=== PATIENT | female | born 1940 | race African-American/Black ===

== ENCOUNTER 2019-03-19 06:00 | Day surgery (SDC) | payer OTHER ==
[~2019-03-19 06:00] MED LIST: [UNRECOGNIZED DRUG - OTHER]
== END 2019-03-19 15:00 | disposition home or self-care (01) ==
LOC: CIR.AMB 06:00
DX: M19.032 Primary osteoarthritis, left wrist (principal); M66.28 Spontaneous rupture of extensor tendons, other site; M67.432 Ganglion, left wrist
CPT/HCPCS: 25825; 25116; 26497; C1776